=== PATIENT | male | born 1980 ===

== ENCOUNTER 2017-09-15 07:27 | Outpatient (CLI) | payer OTHER | END 2017-09-15 07:33 | disposition home or self-care (01) | LOC: LAB 07:27 | DX: R07.0 Pain in throat (principal) ==

== ENCOUNTER 2018-01-27 16:02 | Emergency (ER) | payer OTHER ==
[~2018-01-27] VITALS: Ht 180.3 cm; Wt 90.7 kg
== END 2018-01-27 20:44 | disposition home or self-care (01) ==
LOC: ER 16:02
DX: M76.62 Achilles tendinitis, left leg (principal)

== ENCOUNTER 2018-09-07 18:14 | Outpatient (CLI) | payer OTHER | END 2018-09-07 18:41 | disposition home or self-care (01) | LOC: RAD 18:14 | DX: J20.8 Acute bronchitis due to other specified organisms (principal) ==